=== PATIENT | female | born 1975 | race Caucasian/White ===

== ENCOUNTER 2016-07-25 21:56 | Emergency (ER) | payer OTHER ==
[2016-07-25 22:15] VITALS: PULSE 67; RESP 16
[2016-07-25] MEDS ORDERED: AMOXICILLIN/CLAVULANATE POT 875/125 MG TAB PO ONE (22:29)
--- NOTE | 2016-07-25 22:29 | EDPHY ---
H & P Stated Complaint: dog bite to knee; occurred in [place] Time Seen by Provider: 07/25/16 22:05 HPI/ROS: HPI The patient presents with dog bite to right knee which she sustained last night at 6:00 p.m.. Her own dog bit her when she was him from another dog he was fighting with. She irrigated the wound and cleaned immediately and was feeling fine. A few hours ago, she developed redness, increased pain and swelling surrounding the bite. She does not have any fevers or chills.. REVIEW OF SYSTEMS Constitutional: No fever, no chills. Musculoskeletal: No back pain. Skin: See HPI PMHx: Hypothyroidism Soc Hx: Recently moved here from [facility] PHYSICAL General Appearance: Alert, no distress Respiratory: Breathing comfortably Neurological: A&O, moves all extremities Skin: Warm and dry, no rashes Musculoskeletal: Lateral to right knee there is a 1 cm puncture wound with about 8 cm of surrounding erythema and warmth, she has full range of motion of the knee without any effusion Psychiatric: Patient is oriented X 3, there is no agitation Source: Patient Exam Limitations: No limitations - Personal History LMP (Females 10-55): IUD In Place Current Tetanus/Diphtheria Vaccine: Yes Tetanus Vaccine Date: 06/2010 - Medical/Surgical History Hx Asthma: No Hx Chronic Respiratory Disease: No Hx Diabetes: No Hx Cardiac Disease: No Hx Renal Disease: No Hx Cirrhosis: No Hx Alcoholism: No Hx HIV/AIDS: No Hx Splenectomy or Spleen Trauma: No Other PMH: PMHx: hypothyroidism, acne, depression, kidney infection. PSHx: back surgeries last 2011, ACL repair L 2005, - Social History Smoking Status: Never smoked Constitutional: Initial Vital Signs Temperature (C) 37 C 07/25/16 21:59 Heart Rate 67 07/25/16 21:59 Respiratory Rate 16 07/25/16 21:59 Blood Pressure 131/81 H 07/25/16 21:59 O2 Sat (%) 95 07/25/16 21:59 O2 Delivery Mode Room Air Allergies/Adverse Reactions: No Known Allergies Allergy (Unverified 07/25/16 21:59) Home Medications: Medication Instructions Recorded Amoxicillin/Clavulanate Pot 875 mg PO BID #14 tab 07/25/16 [Augmentin 875 MG TAB (*)] FLUoxetine 07/25/16 Levothyroxine 07/25/16 Spironolactone 07/25/16 Medical Decision Making Differential Diagnosis: This is a 41-year-old female who is healthy who presents after a dog bite about 24 hours ago from her own dog, now with redness and swelling of her right leg. This does not seem to involve the joint space. Differential diagnosis considered includes cellulitis, knee joint infection, abscess. I will start her on Augmentin and we will ute the margins of infection. I have discussed return precautions with her. Departure - Departure Disposition: Home, Routine, Self-Care Clinical Impression: Dog bite of extremity Cellulitis Qualifiers: Site of cellulitis: extremity Site of cellulitis of extremity: lower extremity Laterality: right Qualified Code(s): L03.115 - Cellulitis of right lower limb Condition: Good Instructions: Animal Bite (ED) Additional Instructions: Please return to the emergency room if the redness spreads beyond the ravinder that we made today or if you develop any fevers or chills. Referrals: NONE *PRIMARY CARE P,. [Primary Care Provider] - As per Instructions Prescriptions: Amoxicillin/Clavulanate Pot [Augmentin 875 MG TAB (*)] 875 mg PO BID #14 tab
[2016-07-25 22:41] VITALS: BP 128/71; TEMP 98.1; O2SAT 97
== END 2016-07-25 22:41 | disposition home or self-care (01) ==
DX: S81.051A Open bite, right knee, initial encounter (principal); L03.115 Cellulitis of right lower limb; W54.0XXA Bitten by dog, initial encounter

== ENCOUNTER 2016-07-26 17:23 | Emergency (ER) | payer OTHER ==
[2016-07-26 17:29] VITALS: RESP 18
[2016-07-26] MEDS ORDERED: IBUPROFEN 600 MG TAB PO ONE (18:21)
[2016-07-26] MEDS ORDERED: OXYCODONE/APAP 5/325 TAB PO ONE (18:21)
--- NOTE | 2016-07-26 18:32 | EDPHY ---
H & P Time Seen by Provider: 07/26/16 17:36 HPI/ROS: CHIEF COMPLAINT: dog bite HISTORY OF PRESENT ILLNESS: 41-year-old female presents emergency department complaints after a dog bite 48 hours ago. Patient was seen in the emergency department yesterday and started on Augmentin. Dog bite is on her right knee. Patient took her 1st dose of Augmentin last night, she woke up this morning feeling fatigued. She denies fevers or chills, she was also concerned as the redness was slightly outside of the drawn border. Patient reports pain in this knee with range of motion. REVIEW OF SYSTEMS: A comprehensive 10 point review of systems is otherwise negative aside from elements mentioned in the history of present illness. Smoking Status: Never smoked Physical Exam: GEN: Awake, alert, oriented, no acute distress RESP: nl resp effort MSK: Full range of motion, sensation intact to light touch SKIN: 0.5 cm abrasion to lateral knee with scab with 5 cm x 5 cm area of erythema, slightly outside the marked border, no fluctuance, no drainage, no lymphangitis. Constitutional: Initial Vital Signs Temperature (C) 36.7 C 07/26/16 17:27 Heart Rate 67 07/26/16 17:27 Respiratory Rate 18 07/26/16 17:27 Blood Pressure 111/76 07/26/16 17:27 O2 Sat (%) 97 07/26/16 17:27 O2 Delivery Mode Room Air Allergies/Adverse Reactions: No Known Allergies Allergy (Unverified 07/25/16 21:59) Home Medications: Medication Instructions Recorded Amoxicillin/Clavulanate Pot 875 mg PO BID #14 tab 07/25/16 [Augmentin 875 MG TAB (*)] FLUoxetine 07/25/16 Levothyroxine 07/25/16 Spironolactone 07/25/16 oxyCODONE/APAP 5/325 [Percocet 1 tab PO Q6H PRN #10 tab 07/26/16 5/325] MDM/Departure - MDM Medications Given: Discontinued Medications Cefazolin Sodium (Ancef) 1 mg IM ONCE ONE PRN Reason: Protocol Stop: 07/26/16 18:50 Last Admin: 07/26/16 19:36 Dose: 1 mg Cefazolin Sodium (Ancef) 1,000 mg IM ONCE ONE PRN Reason: Protocol Stop: 07/26/16 19:01 Last Admin: 07/26/16 19:37 Dose: Not Given Cefazolin Sodium/Dextrose (Ancef 1 Gm (Premix)) 50 mls @ 200 mls/hr IV EDNOW ONE PRN Reason: Protocol Stop: 07/26/16 18:35 Last Admin: 07/26/16 18:49 Dose: Not Given Ibuprofen (Motrin) 600 mg PO EDNOW ONE Stop: 07/26/16 18:22 Last Admin: 07/26/16 18:42 Dose: 600 mg Oxycodone/Acetaminophen (Percocet 5/325) 1 tab PO EDNOW ONE Stop: 07/26/16 18:22 Last Admin: 07/26/16 18:42 Dose: 1 tab ED Course/Re-evaluation: Patient is given 1 g of Ancef IV. She has not been doing any warm compresses and is not taking ibuprofen, I am not concerned about a worsening cellulitis, I do think the Augmentin could be making her feel sick. I have recommended probiotics, ibuprofen, rest and elevation and warm compresses. Patient is given return precautions for increased redness, fevers, worsening symptoms. Patient has no evidence of a septic joint. - Depart Disposition: Home, Routine, Self-Care Clinical Impression: Cellulitis Qualifiers: Site of cellulitis: extremity Site of cellulitis of extremity: lower extremity Laterality: right Qualified Code(s): L03.115 - Cellulitis of right lower limb Dog bite Qualifiers: Encounter type: subsequent encounter Qualified Code(s): W54.0XXD - Bitten by dog, subsequent encounter Condition: Good Instructions: Animal Bite (ED), Cellulitis (ED) Additional Instructions: Continue taking your Augmentin twice daily. Take this with food, also start taking probiotics with this. Stay off of your leg, elevate as much as possible , take 600 mg of ibuprofen every 8 hours with food for 3 days. Warm compresses 5 times a day for 10 minutes. Take 1 Percocet every 4-6 hours as needed for severe pain, return to the emergency department for increasing redness, fevers, worsening pain, any new symptoms or concerns. Prescriptions: oxyCODONE/APAP 5/325 [Percocet 5/325] 1 tab PO Q6H PRN #10 tab PRN Reason: Pain, Severe Referrals: Sahil Tomlin, DO [Doctor of Osteopathy] - Follow Up Only If Needed (Primary care doctor on-call)
[2016-07-26] MEDS ORDERED: CEFAZOLIN 330 MG/ML IM SYRINGE IM ONE ×2 (18:49→19:00)
[2016-07-26 20:05] VITALS: BP 112/71; PULSE 69; TEMP 97.9; O2SAT 96
== END 2016-07-26 20:05 | disposition home or self-care (01) ==
DX: L03.115 Cellulitis of right lower limb (principal); W54.0XXD Bitten by dog, subsequent encounter